=== PATIENT | male | born 1945 | race Caucasian/White ===

== ENCOUNTER 2017-02-20 13:35 | Emergency (ER) | payer OTHER, MEDICARE ==
[2017-02-20 13:42] VITALS: BP 141/89; PULSE 74; RESP 18; TEMP 98; O2SAT 100
--- NOTE | 2017-02-20 14:09 | ED PDOC ---
Upper Extremity Pain/Injury Time Seen by Provider: 02/20/17 13:38 Chief Complaint (Nursing): Upper Extremity Problem/Injury Chief Complaint (Provider): Right Index Finger Pain/Swelling History Per: Patient History/Exam Limitations: no limitations Onset/Duration Of Symptoms: Days (x1 week) Current Symptoms Are (Timing): Still Present Severity: Moderate Additional Complaint(s): Adriano Heller is a 71 year old male, with no pertinent past medical history, who presents to the emergency department for the evaluation of right index finger pain, inclusive of swelling, that the patient has been experiencing for 1 week. Patient reports purulent drainage from the finger. Denies a fever. PMD: Jose Cuenca Past Medical History Reviewed: Historical Data, Nursing Documentation, Vital Signs Vital Signs: Last Vital Signs Temp 98 F 02/20/17 13:40 Pulse 74 02/20/17 13:40 Resp 18 02/20/17 13:40 BP 141/89 02/20/17 13:40 Pulse Ox 100 02/20/17 13:40 - Medical History PMH: No Chronic Diseases - Surgical History Surgical History: No Surg Hx - Family History Family History: States: No Known Family Hx - Social History Current smoker - smoking cessation education provided: No Ex-Smoker (has not smoked in the last 12 months): No Alcohol: None Drugs: Denies - Home Medications Home Medications: Ambulatory Orders Medication Instructions Recorded Ibuprofen [Motrin] 600 mg PO BID PRN #20 tab 07/30/15 Tramadol Hydrochloride [Tramadol 50 mg PO Q6H PRN #20 tab 08/24/15 HCl] Cephalexin [Keflex] 500 mg PO BID #14 capsule 02/20/17 - Allergies Allergies/Adverse Reactions: Allergies Allergy/AdvReac Type Severity Reaction Status Date / Time No Known Allergies Allergy Verified 02/20/17 13:40 Review of Systems ROS Statement: Except As Marked, All Systems Reviewed And Found Negative Constitutional: Negative for: Fever Cardiovascular: Positive for: Edema (right index finger) Musculoskeletal: Positive for: Hand Pain (right index finger, inclusive of purulent drainage) Physical Exam - Reviewed Nursing Documentation Reviewed: Yes Vital Signs Reviewed: Yes - Physical Exam Appears: Positive for: Non-toxic, No Acute Distress Head Exam: Positive for: ATRAUMATIC, NORMOCEPHALIC Skin: Positive for: Normal Color, Warm Cardiovascular/Chest: Positive for: Regular Rate, Rhythm. Negative for: Murmur Respiratory: Positive for: Normal Breath Sounds. Negative for: Respiratory Distress Extremity: Positive for: Normal ROM, Tenderness (right index finger), Swelling ( right index finger, inclusive of purulent drainage) Neurologic/Psych: Positive for: Alert, Oriented - ECG O2 Sat by Pulse Oximetry: 100 (RA) Pulse Ox Interpretation: Normal Medical Decision Making Medical Decision Makin:38 Initial Impression: parenchyma, right index finger Initial Plan: * Keflex 500 mg PO * I&D 14:20 Patient was prompted by provider to apply warm compresses to the affected site of purulent drainage. Antibiotics will be prescribed to patient. 14:30 Incision and Drainage procedure performed on patient. Scribe Attestation: Documented by Roberto Ochoa, acting as a scribe for NATALYA Zamarripa. Provider Scribe Attestation: All medical record entries made by the Scribe were at my direction and personally dictated by me. I have reviewed the chart and agree that the record accurately reflects my personal performance of the history, physical exam, medical decision making, and the department course for this patient. I have also personally directed, reviewed, and agree with the discharge instructions and disposition. Procedures - Incision and Drainage Site: right index finger Blade Size: 11 I & D Procedure: betadine prep Progress: drained of purulent material Disposition - Clinical Impression Clinical Impression: Parony[facility]ia - Patient ED Disposition Is Patient to be Admitted: No - Disposition Disposition Time: 14:48 Condition: STABLE Prescriptions: Cephalexin [Keflex] 500 mg PO BID #14 capsule Instructions: [facility] (ED) Forms: [facility] ED School/Work Excuse Print Language: [place] - POA Present On Arrival: None
== END 2017-02-20 15:12 | disposition home or self-care (01) ==
LOC: H.ER 13:35
DX: L03.011 Cellulitis of right finger (principal)